=== PATIENT | male | born 1945 | race Caucasian/White ===

== ENCOUNTER 2022-06-23 03:26 | Emergency (ER) | payer MEDICARE, OTHER ==
[2022-06-23] MEDS ORDERED: Oxymetazoline 0.05% Nasal Spray 30 ML Bottle NAS ONE (04:08)
[2022-06-23] MEDS ORDERED: Losartan 50 MG Tab PO ONE (04:41)
[2022-06-23] MEDS ORDERED: Silver Nitrate Applicator Each TOP ONE (04:48)
== END 2022-06-23 04:28 | disposition home or self-care (01) ==
LOC: JP.ED 03:26
DX: R04.0 Epistaxis (principal); Z88.0 Allergy status to penicillin; Z88.8 Allergy status to other drugs, medicaments and biological substances
CPT/HCPCS: 99283; A9270; 30901; 99281